=== PATIENT | female | born 1945 | race Caucasian/White ===

== ENCOUNTER 2024-03-14 06:07 | Inpatient (IN) ==
--- NOTE | 2024-02-18 08:52 | PAT Medication Instructions ---
Medication Instructions Date of Service February 18, 2024 Home Medications acetaminophen 500 mg capsule 500 mg PO QID PRN Pain apixaban 5 mg tablet (Eliquis) 5 mg PO BID atorvastatin 20 mg tablet (Lipitor) 20 mg PO PM famotidine 40 mg tablet (Pepcid) 40 mg PO BID hydrochlorothiazide 25 mg tablet 12.5 mg PO QAM levothyroxine 137 mcg tablet (Synthroid) 137 mcg PO QAM lisinopril 40 mg tablet 40 mg PO QPM lorazepam 0.5 mg tablet (Ativan) 0.25 mg PO BID PRN Anxiety montelukast 10 mg tablet (Singulair) 10 mg PO PM ASK your prescriber and surgeon apixaban 5 mg tablet (Eliquis) 5 mg PO BID DO NOT take the morning of surgery hydrochlorothiazide 25 mg tablet 12.5 mg PO QAM Take morning of surgery With a small sip of water, OTHERWISE NOTHING TO EAT OR DRINK AFTER MIDNIGHT: acetaminophen 500 mg capsule 500 mg PO QID PRN Pain (if needed) famotidine 40 mg tablet (Pepcid) 40 mg PO BID levothyroxine 137 mcg tablet (Synthroid) 137 mcg PO QAM lorazepam 0.5 mg tablet (Ativan) 0.25 mg PO BID PRN Anxiety (if needed) Take evening before surgery acetaminophen 500 mg capsule 500 mg PO QID PRN Pain (if needed) atorvastatin 20 mg tablet (Lipitor) 20 mg PO PM famotidine 40 mg tablet (Pepcid) 40 mg PO BID lisinopril 40 mg tablet 40 mg PO QPM lorazepam 0.5 mg tablet (Ativan) 0.25 mg PO BID PRN Anxiety (if needed) montelukast 10 mg tablet (Singulair) 10 mg PO PM Other Notes If you have any questions please call us at [phone] or [phone] or [phone] or [phone]
--- NOTE | 2024-02-29 11:43 | Anesthesiology Consultation ---
Date of Service February 29, 2024 Assessment & Plan (1) Encounter for pre-operative examination: - Infectious disease screening: Per assessment on 02/29/24: No known recent infectious disease contacts or current infectious disease symptoms. - Eliquis instructions per surgeon/prescriber - Patient acceptable risk for surgery pending surgeon-ordered PCP (Dr. Naik/[facility], appt 03/04) and cardiology (Dr. Saldana/ [facility], appt 03/04) preop evaluations. Chart Review Chart Review: Patient seen in Pre Admission Testing Teaching & Discussion Pre-Anesthesia Teaching/Discussion Notes: Instructed NPO after midnight before surgery,except medications with 15 cc of water. Medication instructions provided according to the PAT guidelines. History Surgery Operation Date: 03/14/24 10:05 Proposed Procedures p L3-L5 Decompression and Fusion with Spinal Cord Monitoring - Joseluis Bunch, DO Height/Weight Height: 4 ft 8.5 in Weight: 93.3 kg Allergies Allergy/AdvReac Type Severity Reaction Status Date / Time latex Allergy Severe Dyspnea Verified 02/25/24 16:23 Penicillins Allergy Severe Diffuse Verified 02/25/24 16:23 swelling/hives/redness Sulfa (Sulfonamide Allergy Severe Anaphylaxis, Verified 02/25/24 16:23 Antibiotics) tongue/throat swelling oxycodone AdvReac Severe Severe Verified 02/25/24 16:23 constipation Lyeufqb-FRJ-JkX Reductase AdvReac Intermediate Abdominal Verified 02/25/24 16:23 Inhibitor tenderness [Srdrcee-Hqb-Diy Reductase Inhibitor] plastic bags Allergy Severe Dyspnea Uncoded 02/25/24 16:23 Medications Home Medications Medication Instructions Recorded Confirmed Last Taken acetaminophen 500 mg capsule 500 mg PO QID PRN Pain 02/15/24 02/15/24 Unknown apixaban 5 mg tablet (Eliquis) 5 mg PO BID 02/15/24 02/15/24 Unknown atorvastatin 20 mg tablet (Lipitor) 20 mg PO PM 02/15/24 02/15/24 Unknown famotidine 40 mg tablet (Pepcid) 40 mg PO BID 02/15/24 02/15/24 Unknown hydrochlorothiazide 25 mg tablet 12.5 mg PO QAM 02/15/24 02/15/24 Unknown levothyroxine 137 mcg tablet 137 mcg PO QAM 02/15/24 02/15/24 Unknown (Synthroid) lisinopril 40 mg tablet 40 mg PO QPM 02/15/24 02/15/24 Unknown lorazepam 0.5 mg tablet (Ativan) 0.25 mg PO BID PRN Anxiety 02/15/24 02/15/24 Unknown montelukast 10 mg tablet 10 mg PO PM 02/15/24 02/15/24 Unknown (Yordanulair) Past Medical History Medical History Anxiety Asthma Atrial fibrillation Taking Eliquis GERD (gastroesophageal reflux disease) H/O radioactive iodine thyroid ablation History of COVID-19 05/2022: mild cold symptoms, resolved History of hyperthyroidism Hx of gastric ulcer Hyperlipidemia Hypertension Hypothyroidism, postablative Pacemaker Implanted 2017 (severe bradycardia), [facility] Follows with Dr. Saldana/ [facility] Sleep apnea CPAP, occasional use Exercise / Class Metabolic Activity II 4-5 Yardwork/Stairs/Walk up hill (one FS: No CP, no SOB) Past Family History Family History Daughter FHx: breast cancer, Onset Age: 44 FHx: kidney cancer, Onset Age: 45 Past Surgical History Surgical History History of appendectomy History of cataract surgery R/L History of cholecystectomy History of colonoscopy History of esophagogastroduodenoscopy (EGD) S/P cardiac pacemaker procedure (2018) S/P lumbar laminectomy L3/L4, no hardware S/P MARJAN-BSO S/P tonsillectomy Past Anesthesia History No Hx of Anesthesia Complications and No Family Hx of Anesthesia Complications History of PONV No Hx of PONV and No Hx of Motion Sickness Social History Smoking Status: Never smoker Do You Dip or Chew Tobacco: No Hx Alcohol Use: No Hx Substance Use: No substance use type: does not use Review of Systems Patient denies chest pain, shortness of breath, dyspnea on exertion, fever, chills, cough, wheezing. Physical Exam Vital Signs BP 144/89 P 64 TEMP 97.9 SP02 97%RA RESP 16 Physical Full cervical extension range of motion. Full TMJ range of motion. TMD 3 finger breaths Mallampati Score III Dentition: + several crowns, missing molars Lungs: clear throughout to auscultation Cardiac: regular rate and rhythm, no murmurs noted Spine: normal Carotid arteries: negative bruit Extremities: no LE edema Lab Results Anesthesia Preop Results Results Anesthesia Widget: WBC 10.12 K/ul (4.8-10.8) 02/29/24 Hgb 13.4 g/dl (12.0-16.0) 02/29/24 Hct 39.1 % (37.0-47.0) 02/29/24 Plt 290 K/uL (130-400) 02/29/24 Na 138 mmol/L (136-145) 02/29/24 K 3.9 mmol/L (3.5-5.1) 02/29/24 Cl 105 mmol/L (98-107) 02/29/24 CO2 24 mmol/L (21-32) 02/29/24 BUN 23 mg/dl (6-23) 02/29/24 Creat 1.15 mg/dl (0.6-1.2) 02/29/24 Glucose Level 93 mg/dl (70-99(Fasting)) 02/29/24 PT 11.2 Seconds (9.0-12.0) 02/29/24 PTT 32 Seconds (21-31) H 02/29/24 INR 1.0 (0.9-1.1) 02/29/24 Urine Color Yellow 02/29/24 Urine Appearance Clear (Clear) 02/29/24 Urine pH 5.0 (4.5-7.5) 02/29/24 Urine Specific [place] 1.011 (1.000-1.030) 02/29/24 Urine Protein Negative (Negative) 02/29/24 Urine Glucose (UA) Negative (Negative) 02/29/24 Urine Ketones Negative (Negative) 02/29/24 Urine Blood Negative (Negative) 02/29/24 Urine Nitrite Negative (Negative) 02/29/24 Urine Bilirubin Negative (Negative) 02/29/24 Urine Urobilinogen Negative (Negative) 02/29/24 Urine Leukocyte Esterase Trace (Negative) H 02/29/24 Urine WBC (Auto) 0-5 /hpf (0-5) 02/29/24 Urine RBC (Auto) 0-2 /hpf (0-2) 02/29/24 Urine Hyaline Casts (Auto) 0-2 /lpf (0-2) 02/29/24 Urine Epithelial Cells (Auto) 0-2 /hpf (0-2) 02/29/24 Urine Bacteria (Auto) None Seen (None Seen) 02/29/24 Blood Type O Positive 02/29/24 Antibody Screen NEGATIVE 02/29/24 Testing Electrocardiogram Date: 02/29/24 Atrial-sensed ventricular paced rhythm with prolonged AV conduction at 62bpm. Chest X-Ray Date: 02/29/24 FINDINGS: PA and lateral chest radiographs are compared to study dated 03/16/2014. A 2-lead cardiac pacemaker is new from previous and partially obscures the left upper chest. The cardiomediastinal silhouette is top normal for projection and noting atherosclerotic calcification of the thoracic aorta. The pulmonary vasculature is noncongested. The lungs and pleural spaces are clear. There is no pneumothorax. The skeletal structures are osteopenic. The bony thorax appears intact. Degenerative change is noted in the spine. IMPRESSION: No active disease in the chest. Echocardiogram Date: 03/18/22 EF 50-55%. Diastolic filling pattern demonstrates impaired relaxation. Abnormal septal motion. No significant valvular disease. Other Testing Pacer check Date: 12/22/23 "All values WNL" SOAP INSPECTOR > 99%. AP 45%. Battery longevity 2.6 years. Mode DDD.
[~2024-03-14 06:07] MED LIST: ALLERGY Noted to ORDERED Medication SCH; ceFAZolin 2000MG 2,000 MG/15 ML SYR IV SCH
[2024-03-14] MEDS: LR 15ML/HR IV SCH (07:18)
[2024-03-14] MEDS: VANCOMYCIN HCL 1,500 MG in SODIUM CHLORIDE 0.9% 500 ML IV SCH ×2 (07:18→18:39)
[2024-03-14] MEDS: CeleBREX 200 MG CAP PO SCH (07:24)
[2024-03-14] MEDS: ACETAMINOPHEN 500 MG TAB PO SCH (07:25)
[2024-03-14] MEDS: GABAPENTIN 300 MG CAP PO SCH (07:25)
[2024-03-14] MEDS: LR 60ML/HR IV SCH (07:25)
[2024-03-14] MEDS ORDERED: DEXAMETHASONE SOD INJ 4 MG/ML VIAL ONE ×2 (09:29→09:38)
[2024-03-14] MEDS ORDERED: ONDANSETRON INJ 2 MG/ML 2 ML VIAL ONE (09:29)
[2024-03-14] MEDS ORDERED: PROPOFOL IV EMULSION 10 MG/ML 20 ML VIAL IV ONE (09:29)
[2024-03-14] MEDS ORDERED: ROCURONIUM BROMIDE 10 MG/ML 5 ML VIAL IV ONE (09:29)
[2024-03-14] MEDS ORDERED: fentaNYL citrate PF 100 MCG/2 ML VIAL ONE (09:30)
[2024-03-14] MEDS ORDERED: ATROPINE SULFATE 0.1 MG/ML 10ML SYR IV PRN (09:34)
[2024-03-14] MEDS ORDERED: ePHEDrine sulfate 50 MG/ML AMP IV PRN (09:34)
--- NOTE | 2024-03-14 09:49 | History & Physical Bridge Note ---
Date of Service March 14, 2024 History & Physical Bridge Note I have examined the patient, reviewed the History & Physical and in the interval since the performance of the History & Physical I have noted the following changes of clinical significance: no changes noted
--- NOTE | 2024-03-14 09:50 | History & Physical Report ---
Date of Service March 14, 2024 Assessment & Plan (1) Neurogenic claudication due to lumbar spinal stenosis: Plan: L3-L5 decompression and fusion History of Present Illness Chief Complaint: Back and bilateral leg pain Primary Care Provider: Brian Naik DO This is a 78-year-old female who presents with chronic persistent back and back and lateral leg pain and is here for surgical invention. Allergies Allergy/AdvReac Type Severity Reaction Status Date / Time latex Allergy Severe Dyspnea Verified 03/14/24 06:46 Penicillins Allergy Severe Diffuse Verified 03/14/24 06:46 swelling/hives/redness Sulfa (Sulfonamide Allergy Severe Anaphylaxis, Verified 03/14/24 06:46 Antibiotics) tongue/throat swelling oxycodone AdvReac Severe Severe Verified 03/14/24 06:46 constipation Pqtshhy-RAJ-CtY Reductase AdvReac Intermediate Abdominal Verified 03/14/24 06:46 Inhibitor tenderness [Bfxbahk-Sda-Mop Reductase Inhibitor] milk AdvReac Unknown Unknown Verified 03/14/24 06:46 plastic bags Allergy Severe Dyspnea Uncoded 03/14/24 06:46 Home Medications Medication Instructions Recorded Confirmed Type acetaminophen 500 mg capsule 500 mg PO QID PRN Pain 02/15/24 03/14/24 History apixaban 5 mg tablet (Eliquis) 5 mg PO BID 02/15/24 03/14/24 History atorvastatin 20 mg tablet (Lipitor) 20 mg PO PM 02/15/24 03/14/24 History famotidine 40 mg tablet (Pepcid) 40 mg PO BID 02/15/24 03/14/24 History hydrochlorothiazide 25 mg tablet 12.5 mg PO QAM 02/15/24 03/14/24 History levothyroxine 137 mcg tablet 137 mcg PO QAM 02/15/24 03/14/24 History (Synthroid) lisinopril 40 mg tablet 40 mg PO QPM 02/15/24 03/14/24 History lorazepam 0.5 mg tablet (Ativan) 0.25 mg PO BID PRN Anxiety 02/15/24 03/14/24 Hi story montelukast 10 mg tablet 10 mg PO PM 02/15/24 03/14/24 History (Singulair) Past Med/Surg History Problem List (Updated 03/14/24 @ 09:50 by Joseluis uBnch DO) Neurogenic claudication due to lumbar spinal stenosis Encounter for pre-operative examination Medical History Anxiety Asthma Atrial fibrillation Taking Eliquis GERD (gastroesophageal reflux disease) H/O radioactive iodine thyroid ablation History of COVID-19 05/2022: mild cold symptoms, resolved History of hyperthyroidism Hx of gastric ulcer Hyperlipidemia Hypertension Hypothyroidism, postablative Pacemaker Implanted 2017 (severe bradycardia), [facility] Follows with Dr. Saldana/ [facility] Sleep apnea CPAP, occasional use Surgical History History of appendectomy History of cataract surgery R/L History of cholecystectomy History of colonoscopy History of esophagogastroduodenoscopy (EGD) S/P cardiac pacemaker procedure (2017) S/P lumbar laminectomy L3/L4, no hardware S/P MARJAN-BSO S/P tonsillectomy Family History Daughter FHx: breast cancer, Onset Age: 44 FHx: kidney cancer, Onset Age: 45 Social History Smoking Status: Never smoker Second Hand Exposure: No; Do You Dip or Chew Tobacco: No; Tobacco Cessation Education Requested by Patient: No Hx Alcohol Use: No Hx Substance Use: No Preferred Language: Kosovan Communication Ability: Effective Telecommunications Professional Required: No Beliefs That Will Affect Care: None Current Living Situation: Alone Other Information That Helps Us Care for You: No Feels Safe at Home: Yes Safety Concerns: Feels Safe At This Time Assistive Devices: CPAP and Glasses Physical Exam Physical Exam: Patient is alert and oriented Heart regular in rhythm Lungs clear Results & Data Results & Data Vital Signs (Past 12 Hours) Vital Signs Temp Pulse Resp BP Pulse Ox O2 Del Method 03/14/24 06:48 37.1 C 65 20 180/87 H 97 Room Air
[2024-03-14] MEDS ORDERED: HYDROmorphone INJ 2 MG/ML SYR/VIAL ONE (10:55)
[2024-03-14] MEDS: BUPIVACAINE/EPINEPHRINE 0.25% 1:200,000 30 ML VIAL ONE (11:11)
[2024-03-14] MEDS: ceFAZolin 330 MG/ML 1 GM VIAL ONE (11:11)
[2024-03-14] MEDS ORDERED: ALBUMIN HUMAN 5% 12.5 GM/250 ML VIAL IV ONE (12:32)
[2024-03-14] MEDS: FLOSEAL HEMOSTATIC MATRIX 10ML TOP ONE (12:47)
[2024-03-14] MEDS ORDERED: SUGAMMADEX SODIUM 200 MG/2 ML VIAL IV ONE (12:50)
--- NOTE | 2024-03-14 13:03 | Fluoroscopy Report ---
INTRAOPERATIVE RADIOGRAPHS CLINICAL HISTORY: L3-L5 spinal fusion. Fluoro time: 22 seconds Ka,r: 17.11 mGy FINDINGS: 2 spot fluoroscopic views of the lumbar spine are presented. There is discectomy at L3-L4 a nd L4-L5 laminectomy and posterior fusion at L3-L5. Interpedicular screws are present at all levels. The orthopedic hardware appears intact. IMPRESSION: Intraoperative images from lumbar spinal fusion surgery as above. Electronically signed by: Marshall Overton M.D. 03/14/2024 1:02 PM
--- NOTE | 2024-03-14 13:05 | Operative Report ---
Post Operative Report Pre & Post Diagnosis Operation Date: 03/14/24 10:05 Pre-Op Diagnosis: Neurogenic claudication due to lumbar spinal stenosis Spondylolisthesis L3-L4 L4-L5 Morbid obesity Post-Op Diagnosis: Same I identified the patient and participated in the time-out.: Yes Procedure Operation Date: 03/14/24 10:05 Actual Procedures #1 revision decompression with bilateral medial facetectomies and foraminotomies L2-L3, L3-L4 and L4-5. #2 posterior spinal fusion L3-L5. #3 placed posterior instrumentation L3-L5. #4 interbody fusion L3-L4 L4-5 #5 placement of Spira 13 x 26 mm x 2 at L3-L4 and 11 x 26 mm x 2 at L for L5. #6 placement infuse collagen sponge, with Koros in the posterior lateral gutters and os design interbody space. #7 placement locally harvested morselized autograft posterior gutters. #8 placement of versa wrap over the exposed dura. Surgeon Joseluis Bunch, DO Measurement Department Chief Clerk Ania Waggoner Estimated Blood Loss 500 Findings See Below The patient is 4 foot 8 weighing over 93 kg with a BMI in excess of 45. Patient's body was did contribute to significant technical difficulty with positioning exposure and the procedure itself and at least 50% increased operative time. And recommending a modifier 22 for this patient. Specimens None Indications This is a 78-year-old female who presents above-mentioned diagnosis after failing course of nonoperative care is here for surgical invention. Description of Procedure Patient was met with identified informed consent obtained. Patient was then taken to the operative suite underwent intubation placed in a prone position on the Arcadio table on top of the Fabricio frame. All bony prominences well-padded eyes inspected to ensure no external pressure placed upon the. This point the lumbar spine was prepped and draped in normal sterile fashion. Sharp dissection with the assistance of Bovie cautery from down to and exposing the remaining lamina and transverse processes of L3-L4 and L5 bilaterally. From a caudal cephalad fashion revision laminectomy complete bilateral medial facetectomy foraminotomy of L4 was performed addressing severe spinal stenosis. Then proceeded to L3 and a complete laminectomy with bilateral medial facetectomies and foraminotomies performed addressing severe neural compression and lastly partial laminectomy of L2 with bilateral medial facetectomies addressing subarticular stenosis performed. Pedicle screws were then placed at L3 L4-5 bilaterally with the assistance of fluoroscopy and appropriate size alma placed. By way of transforaminal approach on the right discectomy of L4-L5 was performed endplates grade 2 subcortical main bone, and 11 x 26 mm spiral cage filled with os design bone graft tapped in position. Then proceeded to the left transforaminal region at L4-5. Again discectomy performed endplates guided to subcortical and bone and 11 x 26 mm Spira cage filled with os design tapped into position. I then proceeded L3-L4 by way of transforaminal approach left discectomy performed endplates guided to subcortical the bone and a 13 x 26 mm spiral cage filled with os design the rods were then compressed locked into final position bilaterally. The transverse processes of L3 L4-5 burred to subcortical bleeding bone. Tapped in position. Then proceeded the right transforaminal region of L3-L4. Again complete discectomy performed endplates guided to subcortical mean bone and a second 13 x 26 mm Spira cage filled with os designed tapped into position. Infuse collagen sponge combined with Koros and local autograft placed in posterior gutters. Versa wrap was placed over the exposed dura. 15 round MC drain inserted. The incision was then closed with 1 Vicryl the fascia 2-0 Vicryl subcutaneously and 4 Monocryl for final skin closure. Steri-Strips and sterile dressing placed. Patient waken taken to PACU in stable condition. Please note spinal cord monitoring was utilized at the procedure no changes noted. Ania Waggoner was present out the entire procedure involved the patient positioning complex course of the surgery and final skin closure. Im ordering 20 grams of Triple [place] Collagen Powder ([id number]) to treat an incision wound that was caused by a spine procedure. The incision is approximately 2 cm(W) x 4 cm(L) into the joint (D) in size and is a full thickness wound. Triple [place] collagen comes in 1 gram packets so 20 packets were ordered. Given the size of the wound, with light to moderate exudate I chose to order a 20 day supply. The patient will be provided instructions for proper application of the collagen wound kit. The patient will be asked to apply the collagen powder daily and then cover it with sterile dressings dispensed. Collagen was selected as I expect the collagen to attract monocytes and fibroblasts, act as a sacrificial substrate for MMPs, and ultimately proved a matrix for tissue and vessel growth. The collagen will act as a primary dressing in this scenario. It is medically necessary for proper healing of these wounds to improve bioavailability and contact with each wound surface, this is also to help prevent infection of wounds and promote healing ultimately leading to a better healing outcome and limit the risk of infection. I attest to the content of the Intraoperative Record and any orders documented therein. Any exceptions are noted below.
[2024-03-14] MEDS: fentaNYL citrate PF 100 MCG/2 ML VIAL IV PRN (13:33)
[2024-03-14] MEDS: HYDROmorphone INJ 1 MG/ML SYRINGE IV PRN (13:55)
--- NOTE | 2024-03-14 14:45 | Anesthesiology Progress Note ---
Date of Service March 14, 2024 Anesthesia Post Procedure Vital Signs Vital Signs: Temp Pulse Resp BP Pulse Ox O2 Del Method O2 Flow Rate 03/14/24 14:35 66 12 140/71 96 Nasal Cannula 3 03/14/24 14:25 63 12 131/70 94 Oxymask 4 03/14/24 14:15 66 12 136/65 96 Oxymask 4 03/14/24 14:05 68 14 135/75 96 Oxymask 4 03/14/24 13:55 67 14 129/75 95 Oxymask 6 03/14/24 13:45 66 12 126/70 99 Oxymask 8 03/14/24 13:35 72 20 150/78 H 100 Oxymask 8 03/14/24 13:25 62 12 123/66 99 Oxymask 8 03/14/24 13:17 36.4 C L 61 14 98/49 L 99 Oxymask 10 03/14/24 06:48 37.1 C 65 20 180/87 H 97 Room Air Pain Intensity Back: Pain Intensity: 7 Transfer of Care Handoff Completed per policy Notes Mental Status: alert / awake / arousable Patient Amnestic to Procedure: Yes Nausea / Vomiting: adequately controlled Pain: adequately controlled Airway Patency, RR, SpO2: stable & adequate BP & HR: stable & adequate Hydration State: stable & adequate Anesthetic Complications: no major complications apparent and Pt Satisfied with anesthetic care
[2024-03-14] MEDS: ONDANSETRON INJ 2 MG/ML 2 ML VIAL IV PRN ×2 (15:12→17:31)
[2024-03-14] MEDS ORDERED: hydrOXYzine HCl 25 MG TAB PO PRN (16:39)
[2024-03-14] MEDS ORDERED: ONDANSETRON 4 MG OD TAB PO PRN (16:39)
[2024-03-14] MEDS ORDERED: HYDROmorphone INJ 1 MG/ML SYRINGE IV PRN (16:39)
[2024-03-14] MEDS ORDERED: PROMETHAZINE 12.5 MG/50.5 ML BAG IV PRN (16:39)
[2024-03-14] MEDS ORDERED: ALUMINUM/MAGNESIUM SUSP 30 ML UDC PO PRN (16:39)
[2024-03-14] MEDS ORDERED: LORazepam 2 MG/1 ML VIAL IV PRN (16:39)
[2024-03-14] MEDS ORDERED: FAMOTIDINE 20 MG TAB PO PRN (16:39)
[2024-03-14] MEDS ORDERED: VANCOMYCIN CONSULT ACTIVE PRN (16:39)
[2024-03-14] MEDS ORDERED: SOD PHOSPHATE/SOD BIPHOSPHATE ENEMA 132 ML BTL PR PRN (16:39)
[2024-03-14] MEDS ORDERED: diphenhydrAMINE Capsule 25 MG CAP PO PRN (16:39)
[2024-03-14] MEDS ORDERED: HYDROmorphone INJ 0.5 MG/0.5 ML SYR IV PRN (16:39)
[2024-03-14] MEDS ORDERED: DO NOT ADMINISTER FLU VACCINE PRN (16:39)
[2024-03-14] MEDS ORDERED: traMADol HCL 50 MG TABLET PO PRN (16:39)
[2024-03-14] MEDS ORDERED: NALOXONE HCL 0.4 MG/1 ML VIAL/CARP IV PRN (16:39)
[2024-03-14] MEDS ORDERED: DO NOT ADMINISTER PNEUMOCOCCAL VACCINE PRN (16:39)
[2024-03-14] MEDS ORDERED: ACETAMINOPHEN 1,000 MG/100 ML VIAL IV PRN (16:39)
[2024-03-14] MEDS ORDERED: bisacodyL 10 MG SUPP PR PRN (16:39)
[2024-03-14] MEDS: LACTATED RINGER'S 1,000 ML IV SCH (17:09)
--- NOTE | 2024-03-14 17:17 | Hospitalist Consultation ---
Date of Consultation March 14, 2024 Assessment & Plan (1) Neurogenic claudication due to lumbar spinal stenosis: (2) S/P lumbar spine operation: Plan Katrina Martin is a 78y/o F with PMHx significant for dyslipidemia, HTN, paroxysmal atrial fibrillation [on Eliquis], anxiety, GERD, asthma, JALIL on CPAP, complete AV block s/p pacemaker placement and post-ablative hypothyroidism who was referred to our [place] [facility] for post-operative medical management after undergoing L3-L5 decompression and fusion performed by Dr. Bunch on 03/14/2024. Neurogenic Claudication 2/2 Lumbar Spinal Stenosis S/P Lumbar Spine Operation: POD #0 s/p L3-L5 decompression and fusion with Dr. Bunch performed on 03/14/2024. EBL: 500mL & Pre-Op Hgb: 13.4 [as of 02/29/2024] Per ortho for pain control, wound care, anticoagulation and activities. Continue incentive spirometry, PT/OT when appropriate as per ortho team. Monitor H/H for acute blood loss anemia and transfuse blood products PRN. HTN: BP has remained stable postoperatively, continue home lisinopril. Hold HCTZ for now. Paroxysmal Atrial Fibrillation: Patient follows with [facility] ([facility]). Eliquis currently on hold. Recommend to resume her Eliquis as soon as possible post-operatively with ortho clearance. Complete AV Block S/P Pacemaker Placement: Last pacemaker check was on 12/22/2023 and revealed atrial pacing 45% and ventricular pacing 99% with no episodes of arrhythmias. Most recent echocardiogram was performed on 03/28/2022 and revealed an EF of 50- 55%. She undergoes routine device checks through the [facility] pacemaker clinic. Other Chronic Medical Conditions: GERD, hypothyroidism and asthma --> Can continue home medications for these specific conditions. DVT Prophylaxis: SCDs/TEDs as per primary service. Code Status: FULL CODE PCP: Brian Naik DO [[facility]] Disposition: Admitted in Med/Surg - Discharge planning as per primary service. Thank you for this consultation. We will follow the patient with you during their hospital stay. You can reach a member of the [place] [facility]ist Team 29/12 via Floc[employer]. Patient seen in collaboration with Dr. Verde. Please see addendum. I spent a total of 45 minutes coordinating, documenting, and providing care for this patient excluding time spent in the performance of separately billed services. This included personally reviewing all current laboratories and imaging studies, medical reconciliation, outpatient chart review and discussion with specialists. This chart was completed in part utilizing Speech Voice Recognition Software. Grammatical errors, random word insertions, pronoun errors, and incomplete sentences are an occasional consequence of this system due to software limitations, ambient noise, and hardware issues. Any formal questions or concerns about the content, text, or information contained within the body of this dictation should be directly addressed to the provider for clarification. Supervising Physician Co-Signing Physician Notes Attending Addendum: Case reviewed with the advanced practitioner. I have personally performed a history and physical examination on the patient. I have reviewed the advanced practitioner's documentation on the date of service referenced in note, and I agree with, and take responsibility for the plan of care. please refer to her notes for full details patient seen and examined, records reviewed by myself as well on exam, patient seen resting in bed, not in distress states she was having some nausea, stomach upset no chest pain, dyspnea, palpitations, dizziness no other symptoms VS noted and reviewed oriented x 3 , not in distress, speaks in sentences with no effort nor accessory muscle use normal rate, regular rhythm, no murmurs clear breath sounds bilaterally non distended, soft, nontender no bipedal edema, erythema, warmth no neuro deficits all labs, imaging noted and reviewed ASSESSMENT AND PLAN S/P LUMBAR SPINE DECOMPRESSION having GI symptoms after surgery Protonix IV, PRN antiemetics labs tomorrow pain control per Ortho HYPERTENSION hold HCTZ continue Lisinopril [employer] resume Eliquis when ok with Ortho other diagnoses and plan of care as per advanced practitioner's notes Neptali Verde MD History of Present Illness Reason for Consultation: Post-Operative Medical Management Requesting Physician: Joseluis Bunch DO Attending Physician: Joseluis Bunch DO History of Present Illness Katrina Martin is a 78y/o F with PMHx significant for dyslipidemia, HTN, paroxysmal atrial fibrillation [on Eliquis], anxiety, GERD, asthma, JALIL on CPAP, complete AV block s/p pacemaker placement and post-ablative hypothyroidism who was referred to our [place] [facility] for post-operative medical management after undergoing L3-L5 decompression and fusion performed by Dr. Bunch on 03/14/2024. History obtained from patient and associated chart review. Patient reports some postoperative nausea however no episodes of vomiting. Nausea was relieved with IV Zofran. Mentions minimal pain in her lumbar spine region. She drank a little bit of soup broth but otherwise has not eaten anything yet. Feels as if she is still coming off of the anesthesia slowly. Denies any headaches or visual changes. No chest pain or SOB. Does not smoke nor drink alcohol. Encouraged patient to use antiemetics and pain medication as needed. Allergies Allergy/AdvReac Type Severity Reaction Status Date / Time latex Allergy Severe Dyspnea Verified 03/14/24 06:46 Penicillins Allergy Severe Diffuse Verified 03/14/24 06:46 swelling/hives/redness Sulfa (Sulfonamide Allergy Severe Anaphylaxis, Verified 03/14/24 06:46 Antibiotics) tongue/throat swelling oxycodone AdvReac Severe Severe Verified 03/14/24 06:46 constipation Bxpidky-VOB-AyR Reductase AdvReac Intermediate Abdominal Verified 03/14/24 06:46 Inhibitor tenderness [Pafzvpk-Trf-Pli Reductase Inhibitor] milk AdvReac Unknown Unknown Verified 03/14/24 06:46 plastic bags Allergy Severe Dyspnea Uncoded 03/14/24 06:46 Home Medications Medication Instructions Recorded Confirmed Type acetaminophen 500 mg capsule 500 mg PO QID PRN Pain 02/15/24 03/14/24 History apixaban 5 mg tablet (Eliquis) 5 mg PO BID 02/15/24 03/14/24 History atorvastatin 20 mg tablet (Lipitor) 20 mg PO PM 02/15/24 03/14/24 History famotidine 40 mg tablet (Pepcid) 40 mg PO BID 02/15/24 03/14/24 History hydrochlorothiazide 25 mg tablet 12.5 mg PO QAM 02/15/24 03/14/24 History levothyroxine 137 mcg tablet 137 mcg PO QAM 02/15/24 03/14/24 History (Synthroid) lisinopril 40 mg tablet 40 mg PO QPM 02/15/24 03/14/24 History lorazepam 0.5 mg tablet (Ativan) 0.25 mg PO BID PRN Anxiety 02/15/24 03/14/24 History montelukast 10 mg tablet 10 mg PO PM 02/15/24 03/14/24 History (Singulair) Patient History Medical History Atrial fibrillation Taking Eliquis History of COVID-19 05/2022: mild cold symptoms, resolved Anxiety Hx of gastric ulcer GERD (gastroesophageal reflux disease) Asthma Sleep apnea CPAP, occasional use Hyperlipidemia Hypertension Pacemaker Implanted 2017 (severe bradycardia), [place] Follows with Dr. Saldana/[facility] Hypothyroidism, postablative History of hyperthyroidism H/O radioactive iodine thyroid ablation Surgical History S/P cardiac pacemaker procedure (2017) S/P tonsillectomy History of cataract surgery R/L S/P MARJAN-BSO S/P lumbar laminectomy L3/L4, no hardware History of esophagogastroduodenoscopy (EGD) History of colonoscopy History of appendectomy History of cholecystectomy Family History Daughter FHx: breast cancer, Onset Age: 44 FHx: kidney cancer, Onset Age: 45 Social History Smoking Status: Never smoker Second Hand Exposure: No; Do You Dip or Chew Tobacco: No; Tobacco Cessation Education Requested by Patient: No Hx Alcohol Use: No Hx Substance Use: No Preferred Language: Burundian Communication Ability: Effective Transportation Technician Required: No Beliefs That Will Affect Care: None Current Living Situation: Alone Other Information That Helps Us Care for You: No Feels Safe at Home: Yes Safety Concerns: Feels Safe At This Time Assistive Devices: CPAP and Glasses Review of Systems Review of Systems: At least ten systems reviewed and negative, except as noted in the HPI. Physical Exam Physical Exam: General: WD/WN, vitals as above, NAD, laying down in bed, conversing appropriately, appears very tired. A+Ox3, euthymic affect. HEENT: Normocephalic, atraumatic. PERRL, conjunctivae normal, anicteric sclerae. External ear and nose normal, oropharynx normal. Respiratory: Normal respiratory effort, lungs clear to auscultation, no wheeze, rales, rhonchi. No accessory muscle use. Cardiovascular: Regular rate, rhythm, no murmur, normal peripheral pulses, no BLE edema. Vessels: No JVD. Abdomen/GI: Normal bowel sounds, soft, nontender, no hepatosplenomegaly. : Serra catheter intact and draining clear, yellow urine without issue. Extremities/Musculoskeletal: No cyanosis or clubbing, extremities motor strength intact, moves all extremities. Neurologic: EOMI, no focal deficits, CN's II-XI not formally tested but appear grossly intact bilaterally. Skin: No rashes, normal color, warm/dry. MC drain x 1 intact and draining serosanguineous output appropriately. Results & Data Results & Data Vital Signs (Past 12 Hours) Vital Signs Temp Pulse Pulse Resp BP Pulse Ox O2 Del Method 03/14/24 17:01 37.0 C 73 16 135/82 94 Room Air 03/14/24 16:35 Nasal Cannula 03/14/24 16:35 36.8 C 70 20 130/65 95 Nasal Cannula 03/14/24 16:00 60 12 110/62 97 Nasal Cannula 03/14/24 15:45 77 14 138/77 96 Nasal Cannula 03/14/24 15:30 62 12 120/66 96 Nasal Cannula 03/14/24 15:15 65 12 127/70 95 Nasal Cannula 03/14/24 14:55 36.5 C 62 14 122/75 97 Nasal Cannula 03/14/24 14:45 60 12 118/68 97 Nasal Cannula 03/14/24 14:35 66 12 140/71 96 Nasal Cannula 03/14/24 14:25 63 12 131/70 94 Oxymask 03/14/24 14:15 66 12 136/65 96 Oxymask 03/14/24 14:05 68 14 135/75 96 Oxymask 03/14/24 13:55 67 14 129/75 95 Oxymask 03/14/24 13:45 66 12 126/70 99 Oxymask 03/14/24 13:35 72 20 150/78 H 100 Oxymask 03/14/24 13:25 62 12 123/66 99 Oxymask 03/14/24 13:17 36.4 C L 61 14 98/49 L 99 Oxymask 03/14/24 06:48 37.1 C 65 20 180/87 H 97 Room Air O2 Flow Rate 03/14/24 17:01 03/14/24 16:35 3 03/14/24 16:35 3 03/14/24 16:00 3 03/14/24 15:45 3 03/14/24 15:30 3 03/14/24 15:15 3 03/14/24 14:55 3 03/14/24 14:45 3 03/14/24 14:35 3 03/14/24 14:25 4 03/14/24 14:15 4 03/14/24 14:05 4 03/14/24 13:55 6 03/14/24 13:45 8 03/14/24 13:35 8 03/14/24 13:25 8 03/14/24 13:17 10 03/14/24 06:48 Diagnostic Findings Lumbar Spine X-Ray 03/14/24 10:05 INTRAOPERATIVE RADIOGRAPHS CLINICAL HISTORY: L3-L5 spinal fusion. Fluoro time: 22 seconds Ka,r: 17.11 mGy FINDINGS: 2 spot fluoroscopic views of the lumbar spine are presented. There is discectomy at L3-L4 and L4-L5 laminectomy and posterior fusion at L3-L5. Interpedicular screws are present at all levels. The orthopedic hardware appears intact. IMPRESSION: Intraoperative images from lumbar spinal fusion surgery as above. Electronically signed by: Marshall Overton M.D. 03/14/2024 1:02 PM Medications Administered Acetaminophen (Acetaminophen 500 Mg Tab) 1,000 mg PO PREOP TRISH Stop: 03/14/24 18:00 Last Admin: 03/14/24 07:25 Dose: 1,000 mg Documented By: MG Celecoxib (Celebrex 200 Mg Cap) 200 mg PO PREOP TRISH Stop: 03/14/24 18:00 Last Admin: 03/14/24 07:24 Dose: Not Given Documented By: MG Gabapentin (Gabapentin 300 Mg Cap) 300 mg PO PREOP TRISH Stop: 03/14/24 18:00 Last Admin: 03/14/24 07:25 Dose: 300 mg Documented By: MG Lactated Ringer's (Lr) 1,000 mls @ 15 mls/hr IV .Q24H TRISH Stop: 03/15/24 05:59 Last Infusion: 03/14/24 10:17 Dose: Infused Documented By: Admin: 03/14/24 07:18 Dose: 15 mls/hr Documented By: MG Lactated Ringer's (Lr) 1,000 mls @ 60 mls/hr IV .[id number] [facility] Stop: 03/14/24 22:39 Last Admin: 03/14/24 07:25 Dose: Not Given Documented By: MG Vancomycin HCl 1,500 mg/ (Sodium Chloride) 530 mls @ 200 mls/hr IV PREOP TRISH Stop: 03/15/24 05:59 Last Infusion: 03/14/24 16:59 Dose: Infused Documented By: Admin: 03/14/24 07:18 Dose: 200 mls/hr Documented By: MG Lactated Ringer's (Lr) 1,000 mls @ 100 mls/hr IV .Q10H [facility] Stop: 04/13/24 16:38 Last Admin: 03/14/24 17:09 Dose: 100 mls/hr Documented By: ARIELLEW Ondansetron HCl (Ondansetron Inj 2 Mg/Ml 2 Ml Vial) 4 mg IV ONCE PRN PRN Reason: PACU Use Only-Nausea/Vomiting Stop: 03/14/24 17:34 Last Admin: 03/14/24 15:12 Dose: 4 mg Documented By: [facility] Discontinued Medications Bupivacaine HCl/Epinephrine Bitart (Bupivacaine/Epinephrine 0.25% 1:200,000 30 Ml Vial) Confirm Administered Dose 30 ml .ROUTE .STK-MED ONE Stop: 03/14/24 10:01 Last Admin: 03/14/24 11:11 Dose: 25 ml Documented By: GMB Cefazolin Sodium (Cefazolin 330 Mg/Ml 1 Gm Vial) Confirm Administered Dose 990 mg .ROUTE .STK-MED ONE Stop: 03/14/24 10:01 Last Admin: 03/14/24 11:11 Dose: Not Given Documented By: BM Fentanyl Citrate (Fentanyl Citrate Pf 100 Mcg/2 Ml Vial) 25 mcg IV Q5M PRN PRN Reason: PACU Use Only-Pain Stop: 03/14/24 17:34 Last Admin: 03/14/24 13:48 Dose: 25 mcg Documented By: Admin: 03/14/24 13:43 Dose: 25 mcg Documented By: Admin: 03/14/24 13:38 Dose: 25 mcg Documented By: Admin: 03/14/24 13:33 Dose: 25 mcg Documented By: ANTONIO Hydromorphone HCl (Hydromorphone Inj 1 Mg/Ml Syringe) 0.25 mg IV Q5M PRN PRN Reason: PACU Use Only-Pain Stop: 03/14/24 17:34 Last Admin: 03/14/24 15:05 Dose: 0.25 mg Documented By: Admin: 03/14/24 14:35 Dose: 0.25 mg Documented By: Admin: 03/14/24 14:05 Dose: 0.25 mg Documented By: Admin: 03/14/24 13:55 Dose: 0.25 mg Documented By: ANTONIO Miscellaneous ( Floseal Hemostatic Matrix 10ml) 10 ml TOP ONCE ONE Stop: 03/14/24 11:41 Last Admin: 03/14/24 12:47 Dose: 23 ml Documented By: NIMA
[2024-03-14] MEDS: METOCLOPRAMIDE HCL INJ 5 MG/ML 2 ML VIAL IV PRN (19:42)
[2024-03-14] MEDS: ACETAMINOPHEN 500 MG TAB PO PRN (19:46)
[2024-03-14] MEDS: lisinopril 40 MG TAB PO SCH (20:54)
[2024-03-14] MEDS: MONTELUKAST SODIUM 10 MG TABLET PO SCH (20:54)
[2024-03-14] MEDS: FAMOTIDINE 40 MG TABLET PO SCH (20:54)
[2024-03-14] MEDS: DOCUSATE SODIUM/SENNA 50/8.6MG TAB PO SCH (20:54)
[2024-03-14] MEDS: ATORVASTATIN 20 MG TAB PO SCH (20:55)
[2024-03-14] MEDS: PANTOprazole 40 MG in SYRINGE 0 ML IV ONE (23:27)
[2024-03-15] MEDS: LORazepam 0.5 MG TAB PO PRN (03:07)
[2024-03-15] MEDS: POLYETHYLENE (MIRALAX) 17 GM PACK PO SCH (05:42)
[2024-03-15] MEDS: LEVOTHYROXINE SODIUM 137 MCG TABLET PO SCH (05:42)
[2024-03-15 06:55] LABS: Basophils # (auto) 0.02 K/uL (0.00-0.20); Basophils % (auto) 0.2 %; Hemoglobin 9.9 g/dl (12.0-16.0); Immature Granulocytes # (auto) 0.08 K/uL (0.01-0.20); Immature Granulocytes % (auto) 0.6 %; Lymphocytes % (auto) 10.1 %; Mean Corpuscular Hemoglobin 31.2 pg (25.0-34.0); Mean Corpuscular Volume 94.6 fL (80.0-100.0); Mean Platelet Volume 10.9 fL (9.4-12.4); Monocytes # (auto) 1.26 K/uL (0.11-0.59); Monocytes % (auto) 9.8 %; Neutrophils # (auto) 10.22 K/uL (1.40-6.50); Neutrophils % (auto) 79.3 %; Platelet Count 211 K/uL (130-400); RDW Standard Deviation 42.3 fL (36.4-46.3); Red Blood Count 3.17 M/uL (4.20-5.40); White Blood Count 12.88 K/ul (4.8-10.8)
[2024-03-15 07:17] LABS: BUN Creatinine Ratio 22.7 (10-20); Calcium 8.6 mg/dl (8.6-10.3); Creatinine Clr Calc Pharmacy 45.2 ml/min; Magnesium 1.8 mg/dl (1.7-2.4); Phosphorus 3.5 mg/dl (2.5-4.9)
[2024-03-15] MEDS: dexAMETHasone 6 MG in SYRINGE 0 ML IV SCH (07:30)
--- NOTE | 2024-03-15 08:39 | Orthopedic Progress Note ---
Date of Service March 15, 2024 Assessment & Plan (1) Neurogenic claudication due to lumbar spinal stenosis: Plan: At this time initiate physical therapy monitor MC operatively discharge home next few days. Admission and Anticipated Discharge Date Admission Date: March 14, 2024 Subjective Patient's back pain is controlled leg symptoms improved Physical Exam Physical Exam: Patient is currently in bed. She is comfortable. Discussed when to testing. Results & Data Vital Signs (Past 12 Hours) Vital Signs Temp Pulse Resp BP Pulse Ox O2 Del Method O2 Flow Rate 03/15/24 07:28 36.7 C 68 18 141/69 H 100 Nasal Cannula 2 03/15/24 02:34 37.1 C 83 17 130/60 97 Nasal Cannula 03/14/24 23:31 36.9 C 73 16 102/64 95 Nasal Cannula Queries Orthopedic Spine Obesity: Yes
[2024-03-15] MEDS ORDERED: hydroCHLOROthiazide 25 MG TAB PO SCH (09:00)
--- NOTE | 2024-03-15 10:19 | Hospitalist Progress Note ---
Date of Service March 15, 2024 Assessment & Plan (1) Neurogenic claudication due to lumbar spinal stenosis: (2) S/P lumbar spine operation: (3) Acute blood loss as cause of postoperative anemia: Plan Katrina Martin is a 78y/o F with PMHx significant for dyslipidemia, HTN, paroxysmal atrial fibrillation [on Eliquis], anxiety, GERD, asthma, JALIL on CPAP, complete AV block s/p pacemaker placement and post-ablative hypothyroidism [facility] after undergoing L3-L5 decompression and fusion performed by Dr. Bunch on 03/14/2024. Neurogenic Claudication 2/2 Lumbar Spinal Stenosis S/P L3-L5 decompression and fusion with Dr. Bunch POD #1 EBL: 500mL & Pre-Op Hgb: 13.4 on 02/29/2024 pain/wound management per orthopedics diet, activity per ortho monitor hgb Acute blood loss anemia as result of post operative anemia along with dilutional component hgb 9.9, pre op 13.4 no indication for transfusion, continue to monitor h/h HTN: BP has remained stable postoperatively, continue home lisinopril and HCTZ Paroxysmal Atrial Fibrillation: Patient follows with [facility] ([facility]). Eliquis currently on hold. Recommend to resume her Eliquis as soon as possible post-operatively with ortho clearance. Complete AV Block S/P Pacemaker Placement: Last pacemaker check was on 12/22/2023 and revealed atrial pacing 45% and ventricular pacing 99% with no episodes of arrhythmias. Most recent echocardiogram was performed on 03/28/2022 and revealed an EF of 50- 55%. She undergoes routine device checks through the [facility] pacemaker clinic. Elevated fasting glucose: glucose 127 this a.m.; obtain a1c in a.m. Other Chronic Medical Conditions: GERD, hypothyroidism and asthma --> Can continue home medications for these specific conditions. DVT Prophylaxis: SCDs/TEDs as per primary service. Code Status: FULL CODE PCP: Brian Naik, Disposition: per primary Thank you for this consultation. We will follow the patient with you during their hospital stay. You can reach a [facility] of [facility] via [employer]. I spent a total of 43 minutes coordinating, documenting, and providing care for this patient excluding time spent in the performance of separately billed services. This included personally reviewing all current laboratories and imaging studies, medical reconciliation, outpatient chart review and discussion with specialists. Admission and Anticipated Discharge Date Admission Date: March 14, 2024 Subjective NAEO. Pt is ready to get up and get herself ready and walk the halls. Denies f/c/s, chest pain, sob, n/v/d. She is passing gas, "and I'm proud of it." She is asking when her eliquis will be resumed. Review of Systems Review of Systems: All systems reviewed & are unremarkable except as noted in HPI & below Physical Exam Physical Exam: Gen: WD/WN, NAD, A&O x3 HEENT: Normocephalic, atraumatic, conjunctivae moist, sclerae anicteric, mucous membranes moist. Lung: Clear to Auscultation bilaterally, no wheezes/rales/rhonchi Heart: Regular rate, regular rhythm, no murmurs, rubs, or gallops Abdomen: Soft, NT, ND +BS x 4 Extremities: No edema, lumbar dressing cdi with serosang drainage from CM drain Skin: Warm, no rash, negative turgor. Results & Data Results & Data Vital Signs (Past 12 Hours) Vital Signs Temp Pulse Resp BP Pulse Ox O2 Del Method O2 Flow Rate 03/15/24 07:28 36.7 C 68 18 141/69 H 100 Nasal Cannula 2 03/15/24 02:34 37.1 C 83 17 130/60 97 Nasal Cannula 03/14/24 23:31 36.9 C 73 16 102/64 95 Nasal Cannula Laboratory Results Short CBC 03/15/24 Range/Units 06:07 WBC 12.88 H (4.8-10.8) K/ul Hgb 9.9 L (12.0-16.0) g/dl Hct 30.0 L (37.0-47.0) % Plt Count 211 (130-400) K/uL BMP 03/15/24 06:07 Sodium 141 Potassium 4.0 Chloride 109 H Carbon Dioxide 25 BUN 22 Creatinine 0.97 Glucose 127 H Calcium 8.6 Medications Administered Current Inpatient Medications Acetaminophen (Acetaminophen 500 Mg Tab) 1,000 mg PO Q8H PRN PRN Reason: MILD Pain Scale 1,2,3 & Pre PT Stop: 04/13/24 16:38 Last Admin: 03/14/24 19:46 Dose: 1,000 mg Al Hydrox/Mg Hydrox/Simethicone (Aluminum/Magnesium Susp 30 Ml Udc) 30 ml PO Q6H PRN PRN Reason: Dyspepsia Stop: 04/13/24 16:38 Atorvastatin Calcium (Atorvastatin 20 Mg Tab) 20 mg PO PM TRISH Stop: 04/13/24 20:59 Last Admin: 03/14/24 20:55 Dose: 20 mg Bisacodyl (Bisacodyl 10 Mg Supp) 10 mg MI DAILY PRN PRN Reason: Constipation Stop: 04/13/24 16:38 Diphenhydramine HCl (Diphenhydramine Capsule 25 Mg Cap) 25 mg PO Q6H PRN PRN Reason: Allergic Rhinitis/Insomnia Stop: 04/13/24 16:38 Famotidine (Famotidine 40 Mg Tablet) 40 mg PO BID TRISH Stop: 04/13/24 20:59 Last Admin: 03/15/24 07:30 Dose: 40 mg Famotidine (Famotidine 20 Mg Tab) 20 mg PO Q12H PRN PRN Reason: Dyspepsia Stop: 04/13/24 16:38 Hydrochlorothiazide (Hydrochlorothiazide 25 Mg Tab) 12.5 mg PO QAM TRISH Stop: 04/14/24 08:59 Hydromorphone HCl (Hydromorphone Inj 0.5 Mg/0.5 Ml Syr) 0.5 mg IV Q3H PRN PRN Reason: MODERATE Pain (Scale 4,5,6) & Pre PT Stop: 03/28/24 16:38 Hydromorphone HCl (Hydromorphone Inj 1 Mg/Ml Syringe) 1 mg IV Q3H PRN PRN Reason: SEVERE Pain (Scale 7,8,9,10) Stop: 03/28/24 16:38 Hydroxyzine HCl (Hydroxyzine Hcl 25 Mg Tab) 25 mg PO Q8H PRN PRN Reason: Anxiety Stop: 04/13/24 16:38 Acetaminophen (Ofirmev) 1,000 mg in 100 mls @ 400 mls/hr IV Q8H PRN PRN Reason: Pain Rating 1-3 & Pre PT Stop: 03/15/24 16:39 Promethazine HCl (Phenergan) 12.5 mg in 50.5 mls @ 202 mls/hr IV Q6H PRN PRN Reason: Nausea And Vomiting Stop: 04/13/24 16:38 Dexamethasone 6 mg/ Syringe 1.5 mls @ 1 mls/min IV DAILY [facility] Stop: 03/17/24 09:02 Last Admin: 03/15/24 07:30 Dose: 1 mls/min Influenza Virus Vaccine Quadrival (Do Not Administer Flu Vaccine) 1 each N/A PRN PRN PRN Reason: Notification Stop: 04/13/24 16:38 Levothyroxine Sodium (Levothyroxine Sodium 137 Mcg Tablet) 137 mcg PO DAILYBB [facility] Stop: 04/14/24 06:29 Last Admin: 03/15/24 05:42 Dose: 137 mcg Lisinopril (Lisinopril 40 Mg Tab) 40 mg PO QPM TRISH Stop: 04/13/24 20:59 Last Admin: 03/14/24 20:54 Dose: 40 mg Lorazepam (Lorazepam 0.5 Mg Tab) 0.5 mg PO Q8H PRN PRN Reason: Sedation/Anxiety Stop: 04/13/24 16:38 Last Admin: 03/15/24 03:07 Dose: 0.5 mg Lorazepam (Lorazepam 2 Mg/1 Ml Vial) 0.5 mg IV Q8H PRN PRN Reason: Sedation/Anxiety Stop: 04/13/24 16:38 Magnesium Hydroxide (Magnesium Hydroxide Susp 30 Ml Udc) 30 ml PO Q24H PRN PRN Reason: Constipation Stop: 04/13/24 16:38 Metoclopramide HCl (Metoclopramide Hcl Inj 5 Mg/Ml 2 Ml Vial) 10 mg IV Q6H PRN PRN Reason: Nausea &/or Vomiting Stop: 04/13/24 16:38 Last Admin: 03/14/24 19:42 Dose: 10 mg Montelukast Sodium (Montelukast Sodium 10 Mg Tablet) 10 mg PO PM TRISH Stop: 04/13/24 20:59 Last Admin: 03/14/24 20:54 Dose: 10 mg Naloxone HCl (Naloxone Hcl 0.4 Mg/1 Ml Vial/Carp) 0.1 mg IV Q5M PRN PRN Reason: Oversedation/Resp depression Stop: 04/13/24 16:38 Ondansetron HCl (Ondansetron Inj 2 Mg/Ml 2 Ml Vial) 4 mg IV Q6H PRN PRN Reason: Nausea &/or Vomiting Stop: 04/13/24 16:38 Last Admin: 03/14/24 17:31 Dose: 4 mg Ondansetron HCl (Ondansetron 4 Mg Od Tab) 4 mg PO Q6H PRN PRN Reason: Nausea Stop: 04/13/24 16:38 Oxycodone HCl (Oxycodone Hcl Ir 5 Mg Tab (Immediate Release)) 5 - 10 mg PO Q4H PRN PRN Reason: Pain & Pre PT Stop: 03/28/24 16:38 Pneumococcal Polyvalent Vaccine (Do Not Administer Pneumococcal Vaccine) 1 each N/A PRN PRN PRN Reason: Notification Stop: 04/13/24 16:38 Polyethylene Glycol (Polyethylene (Miralax) 17 Gm Pack) 17 gm PO Q6 TRISH Stop: 04/14/24 05:59 Last Admin: 03/15/24 05:42 Dose: 17 gm Senna/Docusate Sodium (Docusate Sodium/Senna 50/8.6mg Tab) 2 tab PO HS TRISH Stop: 04/13/24 20:59 Last Admin: 03/14/24 20:54 Dose: 2 tab Sodium Biphosphate/Sodium Phosphate (Sod Phosphate/Sod Biphosphate Enema 132 Ml Btl) 132 ml MI ONE PRN PRN Reason: Constipation Stop: 04/13/24 16:38 Tramadol HCl (Tramadol Hcl 50 Mg Tablet) 50 - 100 mg PO Q4H PRN PRN Reason: Moderate-Severe pain & Pre PT Stop: 04/13/24 16:38
[2024-03-15] MEDS: oxyCODONE HCL IR 5 MG TAB (IMMEDIATE RELEASE) PO PRN (12:35)
[2024-03-15] MEDS: MAGNESIUM HYDROXIDE SUSP 30 ML UDC PO PRN (18:37)
[2024-03-16 07:04] LABS: Basophils # (auto) 0.02 K/uL (0.00-0.20); Basophils % (auto) 0.2 %; Hematocrit (blood only) 26.6 % (37.0-47.0); Immature Granulocytes # (auto) 0.05 K/uL (0.01-0.20); Immature Granulocytes % (auto) 0.4 %; Lymphocytes # (auto) 1.79 K/uL (1.20-3.40); Lymphocytes % (auto) 14.6 %; Mean Corpuscular Hemoglobin 31.9 pg (25.0-34.0); Mean Corpuscular Hgb Conc 33.8 g/dL (32.0-36.0); Mean Corpuscular Volume 94.3 fL (80.0-100.0); Monocytes # (auto) 1.38 K/uL (0.11-0.59); Monocytes % (auto) 11.2 %; Neutrophils # (auto) 9.03 K/uL (1.40-6.50); Neutrophils % (auto) 73.6 %; Platelet Count 207 K/uL (130-400); RDW Coefficient of Variation 12.4 % (11.5-14.5); RDW Standard Deviation 42.8 fL (36.4-46.3); Red Blood Count 2.82 M/uL (4.20-5.40); White Blood Count 12.27 K/ul (4.8-10.8)
[2024-03-16 07:18] VITALS: RESP 18
[2024-03-16 07:18] LABS: Estimated Average Glucose 105 mg/dl; Hemoglobin A1C 5.3 % (4.5-5.6)
--- NOTE | 2024-03-16 08:21 | Orthopedic Progress Note ---
Date of Service March 16, 2024 Assessment & Plan (1) Neurogenic claudication due to lumbar spinal stenosis: Plan: Katrina is postoperative day 2 status post L3-5 decompression and fusion. Will continue with physical therapy and ambulation today. Maintain MC drain. Continue with aggressive bowel regimen. DVT prophylaxis is in the form teds and SCDs. Continue with pain control. Eliquis can be resumed at the earliest 72 hours postoperatively which would be tomorrow. Admission and Anticipated Discharge Date Admission Date: March 14, 2024 Subjective Katrina is postoperative day 2 status post L3-5 decompression and fusion. She has no complaints. Pain is controlled. She has had a bowel movement. MC drain output last shift was 50 cc. H&H this morning are 9.0 and 26.6 respectively. Yesterday in physical therapy ambulating 280 feet plus the hallways with the assistance of a walker Review of Systems Review of Systems: All systems reviewed & are unremarkable except as noted in HPI & below Physical Exam Physical Exam: Alert and oriented x 3 No acute distress lumbar dressing is clean dry intact with functioning MC drain Strength is intact bilateral lower extremities Calf soft nontender bilaterally Results & Data Vital Signs (Past 12 Hours) Vital Signs Temp Pulse Resp BP Pulse Ox O2 Del Method 03/16/24 07:13 36.9 C 68 18 99/61 L 97 Room Air Queries Orthopedic Spine Obesity: Yes
--- NOTE | 2024-03-16 10:14 | Hospitalist Progress Note ---
Date of Service March 16, 2024 Assessment & Plan (1) Neurogenic claudication due to lumbar spinal stenosis: (2) S/P lumbar spine operation: (3) Acute blood loss as cause of postoperative anemia: Plan Katrina Martin is a 78y/o F with PMHx significant for dyslipidemia, HTN, paroxysmal atrial fibrillation [on Eliquis], anxiety, GERD, asthma, JALIL on CPAP, complete AV block s/p pacemaker placement and post-ablative hypothyroidism who was referred to our [facility] for post-operative medical management after undergoing L3-L5 decompression and fusion performed by Dr. Bunch on 03/14/2024. Neurogenic Claudication 2/2 Lumbar Spinal Stenosis S/P L3-L5 decompression and fusion with Dr. Bunch POD #1 EBL: 500mL & Pre-Op Hgb: 13.4 on 02/29/2024 pain/wound management per orthopedics diet, activity per ortho monitor hgb Acute blood loss anemia as result of post operative anemia along with dilutional component hgb 9.0, pre op 13.4 no indication for transfusion, repeat h/h in a.m. HTN: BP on lower side today, will hold HCTZ/Lisinopril - resume when able Paroxysmal Atrial Fibrillation: Patient follows with [facility] ([facility]). Eliquis currently on hold. Recommend to resume her Eliquis as soon as possible post-operatively with ortho clearance. - per ortho possibly tomorrow which is 72hrs post op, will defer to ortho Complete AV Block S/P Pacemaker Placement: Last pacemaker check was on 12/22/2023 and revealed atrial pacing 45% and ventricular pacing 99% with no episodes of arrhythmias. Most recent echocardiogram was performed on 03/28/2022 and revealed an EF of 50- 55%. She undergoes routine device checks through the [facility] pacemaker clinic. Elevated fasting glucose: a1c 5.3, WNL Other Chronic Medical Conditions: GERD, hypothyroidism and asthma --> Can continue home medications for these specific conditions. DVT Prophylaxis: SCDs/TEDs as per primary service. Code Status: FULL CODE PCP: Brian Naik, Disposition: per primary Thank you for this consultation. We will follow the patient with you during their hospital stay. You can reach a member of the [facility] Team 29/12 via N-1-1. I spent a total of 44 minutes coordinating, documenting, and providing care for this patient excluding time spent in the performance of separately billed services. This included personally reviewing all current laboratories and imaging studies, medical reconciliation, outpatient chart review and discussion with specialists. Admission and Anticipated Discharge Date Admission Date: March 14, 2024 Supervising Physician Co-Signing Physician Notes I have seen and discussed the case with the collaborating advanced practitioner. I agree with the above PN. I have reviewed and confirmed the patients medical history, the findings on physical examination, and the patients diagnosis and treatment plan with Kassidy GRECO and agree with the information documented. Noted post-op hypotension iso medications--holding antihypertensive resume as able Postop blood loss noted, trend CBC in am--transfuse hgb <7 I spent a total of 5 minutes coordinating, documenting, and providing care for this patient excluding time spent in the performance of separately billed services. All of the aforementioned completed outside of collaborating with the assigned advanced practitioner for a full treatment plan. I have reviewed the advanced practitioner's documentation, and I agree with, and take responsibility for the plan of care Mercedes ANNA. She does have some lumbar incision tenderness. She has been up walking around already today. +BM x 3 and tolerating diet. Review of Systems Review of Systems: All systems reviewed & are unremarkable except as noted in HPI & below Physical Exam Physical Exam: Gen: WD/WN, NAD, A&O x3 HEENT: Normocephalic, atraumatic, conjunctivae moist, sclerae anicteric, mucous membranes moist. Lung: Clear to Auscultation bilaterally, no wheezes/rales/rhonchi Heart: Regular rate, regular rhythm, no murmurs, rubs, or gallops Abdomen: Soft, NT, ND +BS x 4 Extremities: No edema, lumbar dressing cdi with serosang drainage from MC drain Skin: Warm, no rash, negative turgor. Results & Data Results & Data Vital Signs (Past 12 Hours) Vital Signs Temp Pulse Resp BP Pulse Ox O2 Del Method 03/16/24 07:13 36.9 C 68 18 99/61 L 97 Room Air Laboratory Results Short CBC 03/16/24 Range/Units 06:20 WBC 12.27 H (4.8-10.8) K/ul Hgb 9.0 L (12.0-16.0) g/dl Hct 26.6 L (37.0-47.0) % Plt Count 207 (130-400) K/uL Medications Administered Current Inpatient Medications Acetaminophen (Acetaminophen 500 Mg Tab) 1,000 mg PO Q8H PRN PRN Reason: MILD Pain Scale 1,2,3 & Pre PT Stop: 04/13/24 16:38 Last Admin: 03/14/24 19:46 Dose: 1,000 mg Al Hydrox/Mg Hydrox/Simethicone (Aluminum/Magnesium Susp 30 Ml Udc) 30 ml PO Q6H PRN PRN Reason: Dyspepsia Stop: 04/13/24 16:38 Atorvastatin Calcium (Atorvastatin 20 Mg Tab) 20 mg PO PM TRISH Stop: 04/13/24 20:59 Last Admin: 03/15/24 20:29 Dose: 20 mg Bisacodyl (Bisacodyl 10 Mg Supp) 10 mg MT DAILY PRN PRN Reason: Constipation Stop: 04/13/24 16:38 Diphenhydramine HCl (Diphenhydramine Capsule 25 Mg Cap) 25 mg PO Q6H PRN PRN Reason: Allergic Rhinitis/Insomnia Stop: 04/13/24 16:38 Famotidine (Famotidine 40 Mg Tablet) 40 mg PO BID TRISH Stop: 04/13/24 20:59 Last Admin: 03/16/24 08:30 Dose: 40 mg Famotidine (Famotidine 20 Mg Tab) 20 mg PO Q12H PRN PRN Reason: Dyspepsia Stop: 04/13/24 16:38 Hydrochlorothiazide (Hydrochlorothiazide 25 Mg Tab) 12.5 mg PO QAM TRISH Stop: 04/14/24 08:59 Hydromorphone HCl (Hydromorphone Inj 0.5 Mg/0.5 Ml Syr) 0.5 mg IV Q3H PRN PRN Reason: MODERATE Pain (Scale 4,5,6) & Pre PT Stop: 03/28/24 16:38 Hydromorphone HCl (Hydromorphone Inj 1 Mg/Ml Syringe) 1 mg IV Q3H PRN PRN Reason: SEVERE Pain (Scale 7,8,9,10) Stop: 03/28/24 16:38 Hydroxyzine HCl (Hydroxyzine Hcl 25 Mg Tab) 25 mg PO Q8H PRN PRN Reason: Anxiety Stop: 04/13/24 16:38 Promethazine HCl (Phenergan) 12.5 mg in 50.5 mls @ 202 mls/hr IV Q6H PRN PRN Reason: Nausea And Vomiting Stop: 04/13/24 16:38 Dexamethasone 6 mg/ Syringe 1.5 mls @ 1 mls/min IV DAILY TRISH Stop: 03/17/24 09:02 Last Admin: 03/16/24 08:30 Dose: 1 mls/min Influenza Virus Vaccine Quadrival (Do Not Administer Flu Vaccine) 1 each N/A PRN PRN PRN Reason: Notification Stop: 04/13/24 16:38 Levothyroxine Sodium (Levothyroxine Sodium 137 Mcg Tablet) 137 mcg PO DAILYBB REPLACED BY [facility] Stop: 04/14/24 06:29 Last Admin: 03/16/24 06:23 Dose: 137 mcg Lisinopril (Lisinopril 40 Mg Tab) 40 mg PO QPM TRISH Stop: 04/13/24 20:59 Last Admin: 03/15/24 20:28 Dose: 40 mg Lorazepam (Lorazepam 0.5 Mg Tab) 0.5 mg PO Q8H PRN PRN Reason: Sedation/Anxiety Stop: 04/13/24 16:38 Last Admin: 03/16/24 04:08 Dose: 0.5 mg Lorazepam (Lorazepam 2 Mg/1 Ml Vial) 0.5 mg IV Q8H PRN PRN Reason: Sedation/Anxiety Stop: 04/13/24 16:38 Magnesium Hydroxide (Magnesium Hydroxide Susp 30 Ml Udc) 30 ml PO Q24H PRN PRN Reason: Constipation Stop: 04/13/24 16:38 Last Admin: 03/15/24 18:37 Dose: 30 ml Metoclopramide HCl (Metoclopramide Hcl Inj 5 Mg/Ml 2 Ml Vial) 10 mg IV Q6H PRN PRN Reason: Nausea &/or Vomiting Stop: 04/13/24 16:38 Last Admin: 03/14/24 19:42 Dose: 10 mg Montelukast Sodium (Montelukast Sodium 10 Mg Tablet) 10 mg PO PM TRISH Stop: 04/13/24 20:59 Last Admin: 03/15/24 20:29 Dose: 10 mg Naloxone HCl (Naloxone Hcl 0.4 Mg/1 Ml Vial/Carp) 0.1 mg IV Q5M PRN PRN Reason: Oversedation/Resp depression Stop: 04/13/24 16:38 Ondansetron HCl (Ondansetron Inj 2 Mg/Ml 2 Ml Vial) 4 mg IV Q6H PRN PRN Reason: Nausea &/or Vomiting Stop: 04/13/24 16:38 Last Admin: 03/14/24 17:31 Dose: 4 mg Ondansetron HCl (Ondansetron 4 Mg Od Tab) 4 mg PO Q6H PRN PRN Reason: Nausea Stop: 04/13/24 16:38 Oxycodone HCl (Oxycodone Hcl Ir 5 Mg Tab (Immediate Release)) 5 - 10 mg PO Q4H PRN PRN Reason: Pain & Pre PT Stop: 03/28/24 16:38 Last Admin: 03/15/24 21:37 Dose: 5 mg Pneumococcal Polyvalent Vaccine (Do Not Administer Pneumococcal Vaccine) 1 each N/A PRN PRN PRN Reason: Notification Stop: 04/13/24 16:38 Senna/Docusate Sodium (Docusate Sodium/Senna 50/8.6mg Tab) 2 tab PO HS TRISH Stop: 04/13/24 20:59 Last Admin: 03/15/24 20:29 Dose: 2 tab Sodium Biphosphate/Sodium Phosphate (Sod Phosphate/Sod Biphosphate Enema 132 Ml Btl) 132 ml MT ONE PRN PRN Reason: Constipation Stop: 04/13/24 16:38 Tramadol HCl (Tramadol Hcl 50 Mg Tablet) 50 - 100 mg PO Q4H PRN PRN Reason: Moderate-Severe pain & Pre PT Stop: 04/13/24 16:38
[2024-03-17 07:35] VITALS: BP 116/75; PULSE 60; TEMP 97.9; O2SAT 97
[2024-03-17 07:58] LABS: Hematocrit (blood only) 28.1 % (37.0-47.0); Hemoglobin 9.3 g/dl (12.0-16.0)
--- NOTE | 2024-03-17 09:53 | Discharge Summary ---
Date of Service March 17, 2024 Admission HPI Per Admitting Provider This is a 78-year-old female who presents with chronic persistent back and back and lateral leg pain and is here for surgical invention. Principal Diagnosis Lumbar spinal stenosis with spondylolisthesis and neurogenic claudication Discharge Data Allergies Allergy/AdvReac Type Severity Reaction Status Date / Time latex Allergy Severe Dyspnea Verified 03/14/24 06:46 Penicillins Allergy Severe Diffuse Verified 03/14/24 06:46 swelling/hives/redness Sulfa (Sulfonamide Allergy Severe Anaphylaxis, Verified 03/14/24 06:46 Antibiotics) tongue/throat swelling oxycodone AdvReac Severe Severe Verified 03/14/24 06:46 constipation Uvyoluf-MSS-ClK Reductase AdvReac Intermediate Abdominal Verified 03/14/24 06:46 Inhibitor tenderness [Rvbufwa-Wic-Ljg Reductase Inhibitor] milk AdvReac Unknown Unknown Verified 03/14/24 06:46 plastic bags Allergy Severe Dyspnea Uncoded 03/14/24 06:46 Consultations 03/14/24 16:39 Consult Hospitalist Routine Procedures Performed Operation Date: 03/14/24 10:05 Actual Procedures p L3-L5 Decompression and Fusion with Spinal Cord Monitoring(Not Applicable) - Joseluis Bunch DO Ordered Studies 03/14/24 10:05 FL lumbar spine 2-3V Routine Hospital Course (1) Neurogenic claudication due to lumbar spinal stenosis: Patient underwent lumbar decompression patient tolerated this well was taken to the orthopedic for postoperative. Post ablation progressed appropriately. Marked improvement of her pain. Excellent strength testing. MC drain decreasing. Simply discharged home. Discharge orders and instructions from the chart for further review. Total Time Total Time Spent Total Time Spent (In Minutes): 20 minutes Discharge Plan Discharge Items Patient Disposition: Home - Self-Care Reason For Visit: Lumbar Degenerative Disc Disease, Lumbar Spondylos Discharge Diagnosis: Lumbar spinal stenosis with neurogenic claudication Activity: As commented below Non-emergency contact: Primary Care Provider Call non-emergency contact if: you have any medication questions Follow-up/Referrals: Brian Naik DO [Primary Care Provider] - Diet: Regular Addtl Attending Provider Instructions: ACTIVITY RECOMMENDATIONS: SELF CARE INSTRUCTIONS AFTER THORACIC/LUMBAR FUSIONS 1. You may walk to your tolerance. It is good exercise for your legs and back. Expect some back and intermittent leg aches and pains. 2. You may perform "counter-top" level activities (make a sandwich, [place] with a project, etc.). 3. No bending or lifting of more than 10 pounds or back twisting of any nature (roll like a log when turning in bed). 4. You may ride in a car for 20-30 minutes at a time. No driving until after your first visit with your doctor. 5. Frequent changes of position and restricting sitting to 30 minutes at a time will help limit the amount of back spasms and stiffness you may experience. 6. You may discontinue the use of ambulatory aids (cane, crutches, etc.) once your strength and confidence allow. 7. You may motion picture printer the shower and let water strike your incision when you arrive home at least once daily. Do not take a tub bath, sit in a hot tub or go into a swimming pool until after your first recheck in the office. 8. You may resume previous diet. SPECIAL CARE INSTRUCTIONS: VERY IMPORTANT TO READ AND REVIEW A. Your surgical incision has been closed with a cosmetic suture under the skin that will dissolve in about 6 weeks. In 14 days, you can use a pair of clean scissors and cut the suture that is left outside of the skin at the ends of your incision. 1. The small skin tapes can be removed 7 days after surgery if they have not fallen off by that point. 2. You may keep the wound open to air as much as possible to promote healing after post-op day number 5 unless told otherwise by your doctor. 3. If you think the wound looks like it is becoming infected (redness or worsening drainage) and/or you are experiencing fever, chill or worsening back pain and muscle spasms, contact the office so that we may evaluate you as soon as possible. B. Complications are uncommon, but please contact us if you have any signs or symptoms of: 1. wound infection (fever higher than 102.5 degrees F, redness, separation of wound, drainage, or increasing pain from the incision) 2. blood clots in legs (pain, swelling, redness and warmth in legs) 3. urinary tract infection (fever higher than 102.5 degrees F, burning upon urination or increased frequency of urination) 4. nerve problems (inability to walk on your toes or heels, numbness, loss of bowel or bladder control) 5. any other symptoms that concern you C. Please call the office at if you have any concerns or questions about your operation or recovery. D. No smoking! Smoking drastically decreases the chance of a solid fusion. E. Do not take any anti-inflammatory medications (Indocin, Advil, Motrin, Aspirin, Naprosyn, etc.) as these may inhibit the chance of a solid fusion. Tylenol is okay to take for pain. MANAGING PAIN AFTER SPINAL SURGERY 1. Narcotic medication is intended for short-term use and will be provided for surgical pain. Surgical pain usually lasts for a period of 4-6 weeks. Narcotic medication includes Percocet, Vicodin, Darvocet, Tylenol #3 or Lortab. 2. Longer-term pain is more appropriately treated with non-narcotic medication such as Tylenol ES. 3. Muscle spasm is not appropriately treated with narcotics. Muscle relaxers such as Soma, Flexeril or Skelaxin can be used along with Tylenol ES. 4. Remember that we all live with some "aches and pains". This is not unusual or uncommon after an injury or as we get older. a. Back pain is expected and may include muscle spasms for 4 to 6 weeks after surgery. The pain should gradually improve. If the pain worsens for no apparent reason, please contact the office. b. Intermittent leg pain may also be experienced and should not be concerned about unless it worsens for no apparent reason. If so, please contact the office. 5. We will provide appropriate medication within the normal guidelines of their prescribed use. We will also be very cautious and aware of potential abuse and extended duration of patients' medication needs. a. Pain medications are for your comfort and to assist with sleep and rest so that the tissue can heal. They are not provided in order to return to normal activity and should not be used through the day. To do so or worsening pain at night can result from ongoing tissue damage and development of tolerance to the prescribed medicine. 6. Please allow 2-3 days to process refills. Prescriptions will not be mailed but must be picked up at the office. FOLLOW UP VISIT: Keep your scheduled follow-up appointment. Any questions, please call the office at . Pending Studies at Discharge: No Stand-Alone Forms: ipDatatel, Smoking Cessation Medications and DC Order Prescriptions: New tramadol 50 mg tablet 50 mg PO Q6H PRN (Reason: pain, moderate) Qty: 30 0RF oxycodone 5 mg tablet 5 mg PO Q6H PRN (Reason: pain) Qty: 30 0RF Continued levothyroxine [Synthroid] 137 mcg Tablet 137 mcg PO QAM atorvastatin [Lipitor] 20 mg Tablet 20 mg PO PM famotidine [Pepcid] 40 mg Tablet 40 mg PO BID lorazepam [Ativan] 0.5 mg Tablet 0.25 mg PO BID PRN (Reason: Anxiety) montelukast [Singulair] 10 mg Tablet 10 mg PO PM hydrochlorothiazide 25 mg Tablet 12.5 mg PO QAM lisinopril [Prinivil] 40 mg Tablet 40 mg PO QPM acetaminophen [Tylenol Extra Strength] 500 mg Capsule 500 mg PO QID PRN (Reason: Pain) Held Eliquis 5 mg Tablet 5 mg PO BID Discharge Orders: Discharge Order (Routine); Ordered 03/17/24 Ordered By: Joseluis Bunch Admission Data Admit Date/Time: 03/14/24 13:09 Attending Provider: Joseluis Bunch Admit Provider: Joseluis Bunch Primary Care Provider: Brian Naik Other Providers: Lena Royal; Babita Rome
--- NOTE | 2024-03-17 10:08 | Hospitalist Progress Note ---
Date of Service March 17, 2024 Assessment & Plan (1) Neurogenic claudication due to lumbar spinal stenosis: (2) S/P lumbar spine operation: (3) Acute blood loss as cause of postoperative anemia: Plan Katrina Martin is a 78y/o F with PMHx significant for dyslipidemia, HTN, paroxysmal atrial fibrillation [on Eliquis], anxiety, GERD, asthma, JALIL on CPAP, complete AV block s/p pacemaker placement and post-ablative hypothyroidism who was referred to our [facility] for post-operative medical management after undergoing L3-L5 decompression and fusion performed by Dr. Bunch on 03/14/2024. Neurogenic Claudication 2/2 Lumbar Spinal Stenosis S/P L3-L5 decompression and fusion with Dr. Bunch POD #3 EBL: 500mL & Pre-Op Hgb: 13.4 on 02/29/2024 pain/wound management per orthopedics diet, activity per ortho monitor hgb Acute blood loss anemia as result of post operative anemia along with dilutional component pre op 13.4, hgb 9.0 yesterday -> improved to 9.3 today no indication for transfusion HTN: BP elevated last evening to 177/76, stable at 116/65 today. Resume lisinopril and hctz with close BP monitoring at home. Follow up with PCP Paroxysmal Atrial Fibrillation: Patient follows with [facility] ([facility]) Plan to resume Eliquis tomorrow morning, 03/18/24, per Dr. Bunch Complete AV Block S/P Pacemaker Placement: Last pacemaker check was on 12/22/2023 and revealed atrial pacing 45% and ventricular pacing 99% with no episodes of arrhythmias. Most recent echocardiogram was performed on 03/28/2022 and revealed an EF of 50- 55%. She undergoes routine device checks through the [facility] pacemaker clinic. Elevated fasting glucose: a1c 5.3, WNL Other Chronic Medical Conditions: GERD, hypothyroidism and asthma --> Can continue home medications for these specific conditions DVT Prophylaxis: SCDs/TEDs as per primary service. Code Status: FULL CODE PCP: Brian Naik DO Disposition: per primary Thank you for this consultation. We will follow the patient with you during their hospital stay. You can reach a member of the [facility]ist Team 29/12 via Taggs. I spent a total of 40 minutes coordinating, documenting, and providing care for this patient excluding time spent in the performance of separately billed services. This included personally reviewing all current laboratories and imaging studies, medical reconciliation, outpatient chart review and discussion with specialists. Admission and Anticipated Discharge Date Admission Date: March 14, 2024 Supervising Physician Co-Signing Physician Notes I have seen and discussed the case with the collaborating advanced practitioner. I agree with the above PN. I have reviewed and confirmed the patients medical history, the findings on physical examination, and the patients diagnosis and treatment plan with Kassidy GRECO and agree with the information documented. Noted post-op hypotension iso medications--holding antihypertensive resume as able, likley upon d./c stable hgb I spent a total of 5 minutes coordinating, documenting, and providing care for this patient excluding time spent in the performance of separately billed services. All of the aforementioned completed outside of collaborating with the assigned advanced practitioner for a full treatment plan. I have reviewed the advanced practitioner's documentation, and I agree with, and take responsibility for the plan of care Subjective Seen and evaluated in 379-2. NAEO. Pain is controlled. Had a few bowel movements yesterday. Discharge today by primary service. Review of Systems Review of Systems: At least ten systems reviewed and negative, except as noted in the HPI. Physical Exam Physical Exam: Gen: WD/WN, NAD, A&O x3 HEENT: Normocephalic, atraumatic, conjunctivae moist, sclerae anicteric, mucous membranes moist Lung: Clear to Auscultation bilaterally Heart: Regular rate, regular rhythm Abdomen: Soft, NT, ND +BS x 4 Extremities: + lumbar spinal dressing lumbar c/d/i with serosanguineous drainage from MC drain Skin: Warm, no rash, negative turgor. Results & Data Results & Data Vital Signs (Past 12 Hours) Vital Signs Temp Pulse Resp BP Pulse Ox O2 Del Method 03/17/24 07:33 36.6 C 60 18 116/75 97 Room Air Laboratory Results Short CBC 03/17/24 Range/Units 07:26 Hgb 9.3 L (12.0-16.0) g/dl Hct 28.1 L (37.0-47.0) % Diagnostic Findings Lumbar Spine X-Ray 03/14/24 10:05 INTRAOPERATIVE RADIOGRAPHS CLINICAL HISTORY: L3-L5 spinal fusion. Fluoro time: 22 seconds Ka,r: 17.11 mGy FINDINGS: 2 spot fluoroscopic views of the lumbar spine are presented. There is discectomy at L3-L4 and L4-L5 laminectomy and posterior fusion at L3-L5. Interpedicular screws are present at all levels. The orthopedic hardware appears intact. IMPRESSION: Intraoperative images from lumbar spinal fusion surgery as above. Electronically signed by: Marshall Overton M.D. 03/14/2024 1:02 PM
== END 2024-03-17 13:26 | disposition home or self-care (01) | DRG 427 ==
LOC: ASU 06:07 → PACUINP 13:09 → 3N 16:49